=== PATIENT | male | born 1950 | race Caucasian/White ===

== ENCOUNTER 2017-05-29 19:02 | Inpatient (IN) | payer MEDICARE ==
[~2017-05-29] VITALS: Ht 180.3 cm; Wt 79.0 kg
[~2017-05-29 19:02] MED LIST: Z.0.NO CURRENT MEDS
[2017-05-29 19:07] VITALS: BP 115/74; PULSE 67; RESP 20; TEMP 98.7; O2SAT 99
--- NOTE | 2017-05-29 19:25 | PD ---
HPI Chief Complaint: Abdominal Pain Time Seen by Provider: 19:15 Travel History International Travel<30 days: No Contact w/Intl Traveler<30days: No Traveled to known affect area: No History of Present Illness HPI This 66-year-old male is complaining of right lower quadrant pain. He says he been having the pain since last Thursday. The pain is not affected by eating. There is been no nausea. Pain does appear to be aggravated by certain movements. There has not been any flank pain or dysuria. He has no history of abdominal surgery. The pain is moderate in intensity does seem to be getting worse. PFSH Past Medical History Cancer: Yes (PROSTATE IN 08/19) Radiation Therapy: Yes (IN 2001) Past Surgical History Genitourinary Surgery: Yes (VASECTOMY) Tonsillectomy: Yes ( A CHILD) Social History Alcohol Use: Yes (OCC.) Tobacco Use: No Allergies-Medications (Allergen,Severity, Reaction): Coded Allergies: No Known Allergies (Verified , 05/29/17) Reported Meds & Prescriptions Reported Meds & Active Scripts Active No Active Prescriptions or Reported Medications Review of Systems General / Constitutional: No: Fever, Chills Eyes: No: Diploplia, Blurred Vision HENT: No: Headaches, Vertigo Cardiovascular: No: Chest Pain or Discomfort, Palpitations Respiratory: No: Cough, Shortness of Breath Gastrointestinal: Positive: Abdominal Pain, No: Nausea, Vomiting Genitourinary: No: Urgency, Frequency Musculoskeletal: No: Myalgias Skin: No Rash, No Itching Neurologic: No: Weakness Physical Exam Narrative GENERAL: Well-developed male SKIN: Focused skin assessment warm/dry. HEAD: Atraumatic. Normocephalic. EYES: Pupils equal and round. No scleral icterus. No injection or drainage. ENT: No nasal bleeding or discharge. Mucous membranes pink and moist. NECK: Trachea midline. No JVD. CARDIOVASCULAR: Regular rate and rhythm. No murmur appreciated. RESPIRATORY: No accessory muscle use. Clear to auscultation. Breath sounds equal bilaterally. GASTROINTESTINAL: Abdomen soft, some right lower quadrant tenderness, nondistended. Hepatic and splenic margins not palpable. . There is no inguinal hernia MUSCULOSKELETAL: No obvious deformities. No clubbing. No cyanosis. No edema. NEUROLOGICAL: Awake and alert. No obvious cranial nerve deficits. Motor grossly within normal limits. Normal speech. PSYCHIATRIC: Appropriate mood and affect; insight and judgment normal. Data Data Last Documented VS Vital Signs Date Time Temp Pulse Resp B/P Pulse Ox O2 Delivery O2 Flow Rate FiO2 05/29/17 20:38 58 18 140/91 99 Room Air 05/29/17 19:07 98.7 Orders Complete Blood Count With Diff (05/29/17 19:20) Comprehensive Metabolic Panel (05/29/17 19:20) Urinalysis - C+S If Indicated (05/29/17 19:20) Ct Abd/Pel W Iv Contrast(Rout) (05/29/17 19:20) Iohexol 350 Inj (Omnipaque 350 Inj) (05/29/17 20:06) Electrocardiogram (05/29/17 20:37) Prothrombin Time / Inr (Pt) (05/29/17 20:37) Act Partial Throm Time (Ptt) (05/29/17 20:37) Chest, Single Ap (05/29/17 20:37) Sodium Chlor 0.9% 1000 Ml Inj (Ns 1000 M (05/29/17 20:45) Admit Order (Ed Use Only) (05/29/17 20:41) Labs Laboratory Tests Test 05/29/17 05/29/17 19:30 19:40 White Blood Count 8.7 TH/MM3 Red Blood Count 4.78 MIL/MM3 Hemoglobin 14.4 GM/DL Hematocrit 42.5 % Mean Corpuscular Volume 89.0 FL Mean Corpuscular Hemoglobin 30.1 PG Mean Corpuscular Hemoglobin 33.8 % Concent Red Cell Distribution Width 11.9 % Platelet Count 193 TH/MM3 Mean Platelet Volume 8.6 FL Neutrophils (%) (Auto) 71.2 % Lymphocytes (%) (Auto) 18.7 % Monocytes (%) (Auto) 7.7 % Eosinophils (%) (Auto) 2.0 % Basophils (%) (Auto) 0.4 % Neutrophils # (Auto) 6.2 TH/MM3 Lymphocytes # (Auto) 1.6 TH/MM3 Monocytes # (Auto) 0.7 TH/MM3 Eosinophils # (Auto) 0.2 TH/MM3 Basophils # (Auto) 0.0 TH/MM3 CBC Comment DIFF FINAL Differential Comment Sodium Level 140 MEQ/L Potassium Level 4.3 MEQ/L Chloride Level 106 MEQ/L Carbon Dioxide Level 28.3 MEQ/L Anion Gap 6 MEQ/L Blood Urea Nitrogen 19 MG/DL Creatinine 1.10 MG/DL Estimat Glomerular Filtration 67 ML/MIN Rate Random Glucose 100 MG/DL Calcium Level 8.5 MG/DL Total Bilirubin 0.3 MG/DL Aspartate Amino Transf 18 U/L (AST/SGOT) Alanine Aminotransferase 26 U/L (ALT/SGPT) Alkaline Phosphatase 70 U/L Total Protein 7.0 GM/DL Albumin 3.5 GM/DL Urine Color YELLOW Urine Turbidity CLEAR Urine pH 6.0 Urine Specific [place] 1.025 Urine Protein NEG mg/dL Urine Glucose (UA) NEG mg/dL Urine Ketones NEG mg/dL Urine Occult Blood NEG Urine Nitrite NEG Urine Bilirubin NEG Urine Leukocyte Esterase NEG Urine RBC 0-3 /hpf Urine WBC 0-2 /hpf Urine Squamous Epithelial 0-5 /hpf Cells Microscopic Urinalysis Comment CULT NOT INDICATED MDM Medical Decision Making Medical Screen Exam Complete: Yes Emergency Medical Condition: Yes Medical Record Reviewed: Yes Differential Diagnosis Differential includes abdominal wall pain, appendicitis, renal colic, UTI Narrative Course CT scan is read as showing uncomplicated acute appendicitis. Involvement is 14 with a white count of 8000. Case discussed with Dr. Marin who asked that the patient be transferred to [place] Diagnosis Primary Impression: Acute appendicitis Qualified Code: K35.80 - Acute appendicitis, unspecified acute appendicitis type Admitting Information Admitting Physician Requests: Observation Scripts No Active Prescriptions or Reported Meds Navdeep Barber MD May 29, 2017 19:25
[2017-05-29 19:40] LABS: AUTOMATED NEUTROPHIL # 6.2 TH/MM3 (1.8-7.7); BASOPHIL % 0.4 % (0.0-2.0); EOSINOPHIL # 0.2 TH/MM3 (0-0.4); HEMATOCRIT 42.5 % (39.0-51.0); HEMO FLAGS DIFF FINAL; LYMPH % 18.7 % (9.0-44.0); LYMPHOCYTE # 1.6 TH/MM3 (1.0-4.8); MEAN CORPUSCULAR HEMOGLOBIN 30.1 PG (27.0-34.0); MEAN CORPUSCULAR HGB CONC 33.8 % (32.0-36.0); MONO % 7.7 % (0.0-8.0); NEUT % 71.2 % (16.0-70.0); PLATELET COUNT 193 TH/MM3 (150-450); RED BLOOD COUNT 4.78 MIL/MM3 (4.50-5.90); RED CELL DISTRIBUTION WIDTH 11.9 % (11.6-17.2); WHITE BLOOD COUNT 8.7 TH/MM3 (4.0-11.0)
[2017-05-29 19:43] LABS: CHLORIDE 106 MEQ/L (98-107); POTASSIUM 4.3 MEQ/L (3.5-5.1); SODIUM (NA) 140 MEQ/L (136-145)
[2017-05-29 19:45] LABS: BLOOD, URINE NEG (NEG); GLUCOSE,URINE NEG (NEG); KETONE, URINE NEG (NEG); NITRITE,URINE NEG (NEG)
[2017-05-29 19:46] LABS: ANION GAP 6 MEQ/L (5-15); BICARBONATE 28.3 MEQ/L (21.0-32.0)
[2017-05-29 19:47] LABS: BLOOD UREA NITROGEN 19 MG/DL (7-18)
[2017-05-29 19:49] LABS: ALT (GPT) 26 U/L (12-78); AST (GOT) 18 U/L (15-37)
[2017-05-29 19:50] LABS: COMMENT (UR) CULT NOT INDICATED; CULTURE IF INDICATED CULT NOT INDICATED; RBC, URINE 0-3 /hpf (0-3); SQUAMOUS EPITHELIAL CELL URINE 0-5 /hpf (0-5); URINE COLOR YELLOW (YELLW/STRAW); WBC, URINE 0-2 /hpf (0-5)
[2017-05-29 19:50] LABS: GLOMERULAR FILTRATION RATE 67 ML/MIN (>89)
[2017-05-29 19:51] LABS: TOTAL BILIRUBIN ADULT 0.3 MG/DL (0.2-1.0)
[2017-05-29 19:52] LABS: ALKALINE PHOSPHATASE 70 U/L (45-117)
[2017-05-29] MEDS ORDERED: IOHEXOL 350 MG/ML 10 ML VIAL (for RAD DIAG) IV ONE (20:06)
--- NOTE | 2017-05-29 20:24 | RADRPT ---
EXAM DATE/TIME: 05/29/2017 20:02 [facility] COMPARISON: No previous studies available for comparison. INDICATIONS : Right lower quadrant pain for 6 days. IV CONTRAST: 95 cc Omnipaque 350 (iohexol) IV ORAL CONTRAST: No oral contrast ingested. RADIATION DOSE: 8.64 CTDIvol (mGy) MEDICAL HISTORY : Carcinoma, prostate. SURGICAL HISTORY : Tonsillectomy. vasectomy ENCOUNTER: Initial ACUITY: 4 - 6 days PAIN SCALE: 2/10 LOCATION: Right lower quadrant TECHNIQUE: Volumetric scanning of the abdomen and pelvis was performed. Using automated exposure control and ad justment of the mA and/or kV according to patient size, radiation dose was kept as low as reasonably achievable to obtain optimal diagnostic quality images. DICOM format image data is available electro nically for review and comparison. FINDINGS: LOWER LUNGS: The visualized lower lungs are clear. LIVER: Homogeneous density without lesion. There is no dilation of the biliary tree. No calcified gallston es. SPLEEN: Normal size without lesion. PANCREAS: Within normal limits. KIDNEYS: Normal in size and shape. There is no mass, stone or hydronephrosis. ADRENAL GLANDS: Within normal limits. VASCULAR: There is no aortic aneurysm. BOWEL/MESENTERY: Thickwalled appendix with mucosal enhancement and periappendiceal fat stranding noted. No abscess, pe rforation or obstruction. The appendix extends inferiorly from the base of the cecum. A few scattered tiny fecaliths are seen within the lumen. ABDOMINAL WALL: Within normal limits. RETROPERITONEUM: There is no lymphadenopathy. BLADDER: No wall thickening or mass. REPRODUCTIVE: Previous prostate surgery. INGUINAL: There is no lymphadenopathy or hernia. MUSCULOSKELETAL: No acute bony abnormality demonstrated. No lytic or sclerotic lesions. CONCLUSION: Uncomplicated acute appendicitis. Mehrdad Vance MD on May 29, 2017 at 20:21 Board Certified Radiologist. This report was verified electronically.
[2017-05-29 20:38] VITALS: BP 140/91; PULSE 58; RESP 18; O2SAT 99
[2017-05-29] MEDS ORDERED: SODIUM CHLOR 0.9% 1000 ML INJ 1,000 ML IV ONE (20:45)
[2017-05-29 20:51] LABS: APTT (PATIENT) 26.6 SEC (24.3-30.1); PROTHROMBIN TIME - PATIENT 10.6 SEC (9.8-11.6)
--- NOTE | 2017-05-29 21:11 | RADRPT ---
EXAM DATE/TIME: 05/29/2017 20:45 [facility] COMPARISON: Report only CHEST SINGLE AP, January 07, 2011, 7:42. INDICATIONS : Evaluate for pneumothorax, pneumonia, or communicable disease. Pre op appedectomy. MEDICAL HISTORY : Carcinoma, prostate. SURGICAL HISTORY : Tonsillectomy. vasectomy ENCOUNTER: Initial ACUITY: 4 - 6 days PAIN SCORE: 2/10 LOCATION: Bilateral chest FINDINGS: A single view of the chest demonstrates the lungs to be symmetrically aerated without evidence of mas s, infiltrate or effusion. The cardiomediastinal contours are unremarkable. Osseous structures are intact. CONCLUSION: No evidence of acute cardiopulmonary disease. Mehrdad Vance MD on May 29, 2017 at 21:09 Board Certified Radiologist. This report was verified electronically.
[2017-05-29 21:42] VITALS: BP 126/81; PULSE 60; RESP 18; O2SAT 100
[2017-05-29] MEDS ORDERED: MORPHINE SULFATE 4 MG/ML INJ IV PRN ×2 (23:45)
[2017-05-30] VITALS (7 sets, daily range): BP systolic 104–122; BP diastolic 62–81; PULSE 58–61; RESP 16–19; TEMP 96.1–98.4; O2SAT 93–99
[2017-05-30] MEDS ORDERED: POVIDONE IODINE 5% (ANTISEPSIS KIT) 4 APPLICATIONS EACH NARE PRN (06:30)
[2017-05-30] MEDS ORDERED: LACTATED RINGER'S 1000 ML IV PRN (06:30)
[2017-05-30] MEDS ORDERED: SODIUM CHLORID 0.9% 500 ML IV PRN (06:30)
[2017-05-30] MEDS ORDERED: METOPROLOL TARTRATE 25 MG TAB PO PRN (06:30)
[2017-05-30] MEDS ORDERED: CHLORHEXIDINE GLUCONATE 2 % 1 PACK (2 CLOTHS) TOPICAL PRN (06:30)
[2017-05-30] MEDS ORDERED: INSULIN HUMAN REGULAR 1,000 UNITS/10 ML VIAL SQ PRN (06:30)
[2017-05-30] MEDS ORDERED: oxyCODONE/ACETAMINOPHEN 10 MG/325 MG TAB PO PRN (09:30)
[2017-05-30] MEDS ORDERED: oxyCODONE/ACETAMINOPHEN 5 MG/325 MG TAB PO PRN ×3 (09:30→13:15)
[2017-05-30] MEDS ORDERED: SODIUM CHLORIDE 0.9% FLUSH 10 ML FLUSH IV FLUSH PRN ×2 (09:30→13:15)
[2017-05-30] MEDS ORDERED: PIPERACIL-TAZO 3.375 GM PREMIX 50 ML IV SCH ×2 (10:00→14:00)
--- NOTE | 2017-05-30 10:04 | MH ---
cc: ANNA BARNES M.D. DATE OF ADMISSION: 05/30/2017 DATE OF : 05/13/1951 HISTORY This is a 66-year-old male who began experiencing abdominal pain 4 days prior to presentation states that the patient states it started as a general abdominal pain intensified to have to speak into his primary doctor's office. He was advised to present to the emergency room on her on evaluation emergency room the patient was found to have an appendicitis on CT scan surgical admission requested. The patient states when he does not move his pain is in as a dislocated right lower quadrant. He denies fevers, chills. No urinary symptoms. No change in bowel habits or chest pains or shortness of breath. PAST MEDICAL HISTORY: His past medical history is significant for prostate cancer post radiation therapy PAST SURGICAL HISTORY: surgical history significant for vasectomy and tonsillectomy. MEDICATIONS: The patient has no chronic medication. ALLERGIES: NO KNOWN DRUG ALLERGIES. SOCIAL HISTORY: He does not smoke. He does drink alcohol occasionally. FAMILY HISTORY Noncontributory. REVIEW OF SYSTEMS Review of systems significant for above. All other 10-point review negative. PHYSICAL EXAMINATION: IN GENERAL: On exam the patient is laying on a stretcher in no acute distress. <<1:49>> equal and reactive. NECK: Trachea is midline. LUNGS: Respirations clear. CARDIOVASCULAR SYSTEM: Regular. GASTROINTESTINAL: Soft, positive tenderness in the right lower quadrant. No peritoneal signs. MUSCULOSKELETAL: No deformities. NEUROLOGICAL: Nonfocal. LABORATORY FINDINGS: The patient's white blood cell count is 8.7 with neutrophils of 71. RADIOLOGIC: CT scan revealed dilated appendix ASSESSMENT This is a patient with appendicitis. PLAN: Our plan will be to take him to the operating room for appenectomy. The risks and benefits explained to include but not be exclusive to infection, bleeding, bowel injury, bladder injury, ureter injury, technical aspects explained as well as sly and postoperative course. It was also explained to the patient that there is a possibility there may be an extensive amount of inflammation prohibiting and removal of the appendix in this case, I will likely drain that area with interval appendectomy. The patient has verbalized understanding and agreed to planned care. MD DURGA Sharma/silvia /9:22 AM /9:55 AM
[2017-05-30] MEDS: SODIUM CHLOR 0.9% 1000 ML INJ 1,000 ML IV SCH ×4 (10:06→23:05)
[2017-05-30] MEDS ORDERED: fentaNYL CITRATE 250 MCG/5 ML AMP ONE (11:25)
[2017-05-30] MEDS ORDERED: BUPIVACAINE/EPINEPHRINE 0.5% PF 10 ML VIAL ONE ×2 (11:47→11:50)
[2017-05-30] MEDS ORDERED: BUPIVACAINE/EPINEPHRINE 0.5% PF 30 ML VIAL ONE (11:48)
[2017-05-30] MEDS ORDERED: BUPIVACAINE/EPINEPHRINE 0.25% 50 ML VIAL ONE (11:52)
[2017-05-30] MEDS ORDERED: ePHEDrine/NS 25 MG/5 ML SYR IV ONE (12:00)
[2017-05-30] MEDS ORDERED: KETOROLAC TROMETHAMINE 60 MG/2 ML (IM) VIAL IM ONE (12:00)
[2017-05-30] MEDS ORDERED: PROPOFOL 200 MG/20 ML AMP IV ONE (12:00)
[2017-05-30] MEDS ORDERED: ONDANSETRON HCL 4 MG/2 ML VIAL IV PUSH ONE (12:00)
[2017-05-30] MEDS ORDERED: Post-op Orders (for Pharmacy) MISC XX ONE (13:15)
[2017-05-30] MEDS ORDERED: ONDANSETRON HCL 4 MG/2 ML VIAL IV PRN (13:15)
[2017-05-30] MEDS ORDERED: HYDROmorphone HCL PF 1 MG/ML VIAL IV PRN (13:15)
[2017-05-30] MEDS ORDERED: DO NOT ADM ANY ANTICOAGULANT DRUGS PRN (13:17)
[2017-05-30] MEDS ORDERED: *morphine SULFATE 8 MG/ML PERIprocedure ONLY ONE (13:37)
[2017-05-30] MEDS ORDERED: *HYDROmorphone PF 1 MG VIAL PERIprocedural Use ONLY ONE ×2 (13:46→14:01)
--- NOTE | 2017-05-30 14:34 | EKG ---
Date Performed: 05/29/2017 Time Performed: 20:47:24 PTAGE: 66 years EKG: SINUS BRADYCARDIA BORDERLINE ECG PREVIOUS TRACING : 01/07/2011 06.54 Since previous tracing, no significant change noted DOCTOR: Low Hernandez Interpretating Date/Time 05/30/2017 14:33:28
[2017-05-30] MEDS: PIPERACIL-TAZO 3.375 GM PREMIX 50 ML IV SCH (18:00)
[2017-05-30] MEDS: SODIUM CHLORIDE 0.9% FLUSH 10 ML FLUSH IV FLUSH SCH ×2 (21:00)
[2017-05-30] MEDS: DOCUSATE SODIUM 100 MG CAP PO SCH (21:00)
[2017-05-31] MEDS: SODIUM CHLOR 0.9% 1000 ML INJ 1,000 ML IV SCH ×5 (01:19→15:31)
[2017-05-31] MEDS: PIPERACIL-TAZO 3.375 GM PREMIX 50 ML IV SCH ×3 (01:30→15:30)
[2017-05-31 04:22] LABS: AUTOMATED NEUTROPHIL # 6.9 TH/MM3 (1.8-7.7); BASOPHIL % 0.2 % (0.0-2.0); HEMATOCRIT 37.6 % (39.0-51.0); HEMO FLAGS DIFF FINAL; LYMPH % 10.3 % (9.0-44.0); LYMPHOCYTE # 0.9 TH/MM3 (1.0-4.8); MEAN CELL VOLUME 88.6 FL (80.0-100.0); MONO % 8.6 % (0.0-8.0); NEUT % 80.9 % (16.0-70.0); PLATELET COUNT 150 TH/MM3 (150-450); RED BLOOD COUNT 4.25 MIL/MM3 (4.50-5.90); RED CELL DISTRIBUTION WIDTH 12.4 % (11.6-17.2); WHITE BLOOD COUNT 8.5 TH/MM3 (4.0-11.0)
[2017-05-31 04:39] VITALS: BP 124/70; PULSE 62; RESP 18; TEMP 98.1; O2SAT 94
--- NOTE | 2017-05-31 05:10 | MP ---
cc: DUNCAN LAGUNAS DATE OF : 1950 DATE OF OPERATION 05/30/2017 PREOPERATIVE DIAGNOSIS Acute appendicitis POSTOPERATIVE DIAGNOSIS Acute appendicitis PROCEDURE Laparoscopic appendectomy. SURGEON Duncan Lagunas MD. ANESTHESIA General endotracheal anesthesia. ESTIMATED BLOOD LOSS Scant FINDINGS Acutely inflamed appendix SPECIMEN Appendix COMPLICATIONS None OPERATION The patient was brought to the operating room, placed on the operating table in supine position. Bilateral sequential inflation device placed on the lower extremities. General anesthesia instituted, Hathaway catheter placed. The abdomen was prepped and draped sterilely. A point in the infraumbilical region anesthetized with 0.25% Marcaine with epinephrine. A skin incision was made, 5 mm OptiVu port placed under direct vision and pneumoperitoneum created under direct vision and a 5 mm suprapubic port, and a 12 mm left lower quadrant port was placed. Prior to placement of all ports, the skin and peritoneum anesthetized with 0.25% Marcaine with epinephrine. The patient is placed in Trendelenburg position right side up. The appendix was found to be adhesed to the right flank. It was taken down off of the right flank and brought into view. The mesoappendix was found to be edematous and thickened. The harmonic scalpel was used to separate the mesoappendix and appendiceal vessel. There was some oozing from the stump of the appendiceal vessel. As a result, this was endo-looped to control bleeding. The endovascular stapler was used to amputate the appendix at its base. The appendix was retrieved from the peritoneal cavity in an Endopouch through the 12 mm port site. Operative field was inspected. Hemoclips intact. No evidence of bleeding. The pelvis was irrigated with copious amounts of saline. The CO2 was released. All ports removed. The fascia at the 12 mm port site approximated with 0 Vicryl. Wound irrigated with saline. All skin incisions closed with 4-0 Monocryl. The abdominal wall was cleaned and sterile dressing placed. The patient was awakened and taken to the recovery room. MD DURGA Sharma/LEONIDES /1:09 PM /4:50 AM
[2017-05-31 07:47] VITALS: BP 140/71; PULSE 67; RESP 17; TEMP 98; O2SAT 95
[2017-05-31] MEDS: DOCUSATE SODIUM 100 MG CAP PO SCH (07:50)
[2017-05-31] MEDS: SODIUM CHLORIDE 0.9% FLUSH 10 ML FLUSH IV FLUSH SCH ×2 (07:50)
[2017-05-31] MEDS ORDERED: PANTOPRAZOLE SODIUM 40 MG VIAL IV SCH (09:00)
[2017-05-31 12:05] VITALS: BP 134/74; PULSE 54; RESP 17; TEMP 96.9; O2SAT 99
[2017-05-31 15:33] VITALS: BP 120/78; PULSE 58; RESP 17; TEMP 97; O2SAT 98
[2017-05-31] MEDS ORDERED: PERC5TAB12 PO (16:40)
--- NOTE | 2017-05-31 16:42 | HHI.PR ---
Subjective Subjective Notes no abd pain no cp no sob Objective Vitals/I&O Vital Signs Date Time Temp Pulse Resp B/P (MAP) Pulse Ox O2 Delivery O2 Flow Rate FiO2 05/31/17 15:33 97.0 58 17 120/78 (92) 98 05/31/17 07:11 Room Air 05/30/17 14:15 2 Labs Laboratory Tests Test 05/31/17 03:44 White Blood Count 8.5 Red Blood Count 4.25 Hemoglobin 13.2 Hematocrit 37.6 Mean Corpuscular Volume 88.6 Mean Corpuscular Hemoglobin 31.0 Mean Corpuscular Hemoglobin Concent 35.0 Red Cell Distribution Width 12.4 Platelet Count 150 Mean Platelet Volume 8.6 Neutrophils (%) (Auto) 80.9 Lymphocytes (%) (Auto) 10.3 Monocytes (%) (Auto) 8.6 Eosinophils (%) (Auto) 0.0 Basophils (%) (Auto) 0.2 Neutrophils # (Auto) 6.9 Lymphocytes # (Auto) 0.9 Monocytes # (Auto) 0.7 Eosinophils # (Auto) 0.0 Basophils # (Auto) 0.0 CBC Comment DIFF FINAL Differential Comment Abdomen: Post-op tenderness Extremities: Perfused Wound Wound : Wound Location: Abdomen Appearance: Clean & Dry A/P Assessment and Plan s/p lap appy doing well d/c home f/u office 2 wks Duncan Lagunas MD May 31, 2017 16:42
== END 2017-05-31 18:33 | disposition home or self-care (01) | DRG 343 ==
LOC: PHED 19:02 → PHEDA 20:44 → N06B 22:32 → OBSVTOIN 05-30 09:21
PROVIDERS: ADMIT Surgery; ATTEND Surgery
PROC: 0DTJ4ZZ Resection of Appendix, Percutaneous Endoscopic Approach (ICD-10-PCS; principal; 2017-05-30 11:38)
DX: K35.80 Unspecified acute appendicitis (principal); Z85.46 Personal history of malignant neoplasm of prostate; Z92.3 Personal history of irradiation
CPT/HCPCS: 71010; 74177; 80053; 81001; 85025; 85610; 85730; 88304; 93005; 94150; 96360; 96361; C9113; J1170; J1885; J2270; J2405; J2543; J3010; J7030; Q9967

== ENCOUNTER 2017-08-17 13:22 | Emergency (ER) | payer MEDICARE ==
[~2017-08-17 13:22] MED LIST changes: +PERC5TAB12 PO; -Z.0.NO CURRENT MEDS
[2017-08-17 13:24] VITALS: BP 122/85; PULSE 84; RESP 12; TEMP 98.2; O2SAT 98
[2017-08-17 14:14] LABS: AUTOMATED NEUTROPHIL # 2.9 TH/MM3 (1.8-7.7); BASOPHIL % 0.6 % (0.0-2.0); EOSINOPHIL # 0.1 TH/MM3 (0-0.4); EOSINOPHIL % 2.6 % (0.0-4.0); HEMATOCRIT 42.5 % (39.0-51.0); HEMO FLAGS DIFF FINAL; LYMPH % 32.2 % (9.0-44.0); LYMPHOCYTE # 1.8 TH/MM3 (1.0-4.8); MEAN CELL VOLUME 89.1 FL (80.0-100.0); MEAN CORPUSCULAR HEMOGLOBIN 30.6 PG (27.0-34.0); MEAN CORPUSCULAR HGB CONC 34.3 % (32.0-36.0); NEUT % 53.6 % (16.0-70.0); PLATELET COUNT 152 TH/MM3 (150-450); RED BLOOD COUNT 4.77 MIL/MM3 (4.50-5.90); WHITE BLOOD COUNT 5.5 TH/MM3 (4.0-11.0)
--- NOTE | 2017-08-17 14:22 | RADRPT ---
EXAM DATE/TIME: 08/17/2017 13:49 [facility] COMPARISON: CHEST SINGLE AP, May 29, 2017, 20:45. INDICATIONS : Midsternal chest pains x1 week ago, shortness of breath. MEDICAL HISTORY : None. SURGICAL HISTORY : Appendectomy. ENCOUNTER: Initial ACUITY: 1 week PAIN SCORE: 0/10 LOCATION: Bilateral chest FINDINGS: A single view of the chest demonstrates the lungs to be symmetrically aerated without evidence of mas s, infiltrate or effusion. The cardiomediastinal contours are unremarkable. Osseous structures are intact. CONCLUSION: No acute disease. Ralph Dorsey MD on August 17, 2017 at 14:20 Board Certified Radiologist. This report was verified electronically.
[2017-08-17 14:28] LABS: BICARBONATE 27.5 MEQ/L (21.0-32.0); POTASSIUM 4.6 MEQ/L (3.5-5.1)
[2017-08-17 14:31] LABS: APTT (PATIENT) 25.9 SEC (24.3-30.1); PROTHROMBIN TIME - PATIENT 11.4 SEC (9.8-11.6)
[2017-08-17 15:12] LABS: CREATINE KINASE 246 U/L (39-308)
[2017-08-17 15:24] LABS: CKMB 3.6 NG/ML (0.5-3.6)
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
[2017-08-17] MEDS ORDERED: SODIUM CHLORID 0.9% 500 ML INJ 500 ML IV ONE (16:00)
--- NOTE | 2017-08-18 19:08 | EKG ---
Date Performed: 08/17/2017 Time Performed: 14:58:11 PTAGE: 66 years EKG: SINUS BRADYCARDIA BORDERLINE ECG Compared to prior tracing no significant change PREVIOUS TRACING : 05/29/2017 20.47 DOCTOR: Lissette Ceballos Interpretating Date/Time 08/18/2017 19:07:37
== END 2017-08-17 16:57 | disposition home or self-care (01) ==
LOC: NEPE 13:22
DX: R79.89 Other specified abnormal findings of blood chemistry (principal)
CPT/HCPCS: 71010; 80048; 82550; 82552; 84484; 85025; 85379; 85610; 85730; 93005; 99285; J7040